=== PATIENT | male | born 1985 | race African-American/Black ===

== ENCOUNTER 2017-02-04 08:05 | Emergency (ER) | payer BC ==
[2017-02-04] MEDS ORDERED: Aspirin Low Dose CHEW TAB* 81 MG PO ONE (08:33)
[2017-02-04] MEDS ORDERED: Ketorolac INJ* 30 MG/ML 1 ML VIAL IV ONE (08:45)
[2017-02-04 08:48] LABS: Hematocrit 41 % (42-52); Hemoglobin 13.5 g/dl (14.0-18.0); Mean Corpuscular HGB Conc 33 g/dl (31-36); Mean Corpuscular Hemoglobin 29 pg (27-31); Mean Corpuscular Volume 87 fL (80-94); Mean Platelet Volume 9 um3 (7.4-10.4); Red Blood Count 4.69 10^6/ul (4.0-5.4); Red Cell Distribution Width 15 % (10.5-15); White Blood Count 5.6 10^3/ul (3.5-10.8)
--- NOTE | 2017-02-04 08:54 | RAD ---
HISTORY: Chest pain COMPARISONS: None VIEWS: 1: frontal portable view of the chest at 8:40 AM FINDINGS: LINES AND TUBES: None. CARDIOMEDIASTINAL SILHOUETTE: The cardiomediastinal silhouette is normal for portable technique. PLEURA: The costophrenic angles are sharp. No pleural abnormalities are noted. LUNG PARENCHYMA: The lungs are clear. ABDOMEN: The upper abdomen is clear. There is no subphrenic gas. BONES AND SOFT TISSUES: No bone or soft tissue abnormalities are noted. IMPRESSION: NO ACTIVE CARDIOPULMONARY DISEASE.
[2017-02-04 09:17] LABS: BUN/Creatinine Ratio 10.7 (8-20); Calcium 8.6 mg/dL (8.6-10.3); EGFR African American 88.5 (>60); EGFR Non-African American 68.8 (>60); Total Bilirubin 0.7 mg/dL (0.2-1.0)
[2017-02-04 10:24] VITALS: BP 125/75
--- NOTE | 2017-02-04 10:35 | ED ---
Juancarlos Barrientos SooYoung, scribed for Jamal Villar MD on 02/04/17 at 0827 . HPI Chest Pain - HPI Summary HPI Summary: A 32 y/o M DENILSON presents to ED with c/o sudden-onset, L-sided CP onset this AM that woke him from sleep. He states having intermittent CP over the past few days but it worsened a lot this AM. Pain described as stabbing/shooting and radiating around to back. Associated sx: diaphoresis. Denies arm pain, pedal edema. Aggravating factors: deep breaths. He took an Ibuprofen to no relief. He had prev episode last year but is unsure what the results, dx were. He has not had a stress test. Smoker. FHx: father has had multiple PA, first one at approx 47; mother has no cardiac risk factors. No daily meds. - History of Current Complaint Chief Complaint: EDChestPainROMI Time Seen by Provider: 02/04/17 08:16 Hx Obtained From: Patient Onset/Duration: Started Hours Ago, Still Present Timing: Constant Initial Severity: Moderate Current Severity: Moderate Chest Pain Location: Left Anterior Chest Pain Radiates: Yes Chest Pain Radiates To:: Back Character: Sharp/Stabbing Aggravating Factor(s): Deep Breaths Alleviating Factor(s): Nothing Associated Signs and Symptoms: Positive: Diaphoresis. 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 Infectious Disease History: Yes Infectious Disease History: Denies: Hx Hepatitis, Hx Human Immunodeficiency Virus (HIV), Traveled Outside the [place] in Last 30 Days - Family History Known Family History: Positive: Cardiac Disease - father - multiple PA, first one at approx 47, Other - mother healthy - Social History Occupation: Employed Full-time Lives: With Family Alcohol Use: Weekly Hx Substance Use: No Substance Use Type: Reports: None Smoking Status (MU): Light Every Day Tobacco Smoker Type: Cigars Review of Systems Positive: Skin Diaphoresis Positive: Chest Pain Negative: Edema, Other - ng: UE pain All Other Systems Reviewed And Are Negative: Yes Physical Exam Triage Information Reviewed: Yes Vital Signs On Initial Exam: Initial Vitals Temp Pulse Resp BP Pulse Ox 98.2 F 54 16 131/88 99 02/04/17 08:05 02/04/17 08:05 02/04/17 08:05 02/04/17 08:05 02/04/17 08:05 Vital Signs Reviewed: Yes Appearance: Positive: Well-Appearing, No Pain Distress Skin: Positive: Warm, Skin Color Reflects Adequate Perfusion, Dry Head/Face: Positive: Normal Head/Face Inspection Eyes: Positive: Normal ENT: Positive: Normal ENT inspection Neck: Positive: Supple, Nontender Respiratory/Lung Sounds: Positive: Clear to Auscultation, Breath Sounds Present Cardiovascular: Positive: RRR Abdomen Description: Positive: Nontender, Soft Bowel Sounds: Positive: Present Musculoskeletal: Positive: Other - Tenderness in L diomedes-sternal Neurological: Positive: Normal Psychiatric: Positive: Affect/Mood Appropriate - [employer] Coma Scale Coma Scale Total: 15 Diagnostics - Vital Signs Vital Signs Temp Pulse Resp BP Pulse Ox 02/04/17 08:05 98.2 F 54 16 131/88 99 - Laboratory Lab Results: Lab Results 02/04/17 02/04/17 02/04/17 Range/Units 08:30 08:30 08:30 WBC 5.6 (3.5-10.8) 10^3/ul RBC 4.69 (4.0-5.4) 10^6/ul Hgb 13.5 L (14.0-18.0) g/dl Hct 41 L (42-52) % MCV 87 (80-94) fL MCH 29 (27-31) pg MCHC 33 (31-36) g/dl RDW 15 (10.5-15) % Plt Count 245 (150-450) 10^3/ul MPV 9 (7.4-10.4) um3 Neut % (Auto) 45.7 (38-83) % Lymph % (Auto) 41.7 (25-47) % Schuyler % (Auto) 11.4 H (1-9) % Eos % (Auto) 0.9 (0-6) % Baso % (Auto) 0.3 (0-2) % Absolute Neuts (auto) 2.6 (1.5-7.7) 10^3/ul Absolute Lymphs (auto) 2.3 (1.0-4.8) 10^3/ul Absolute Monos (auto) 0.6 (0-0.8) 10^3/ul Absolute Eos (auto) 0 (0-0.6) 10^3/ul Absolute Basos (auto) 0 (0-0.2) 10^3/ul Absolute Nucleated RBC 0 10^3/ul Nucleated RBC % 0 D-Dimer, Quantitative < 200 (Less Than 230) ng/mL Sodium 135 (133-145) mmol/L Potassium 4.0 (3.5-5.0) mmol/L Chloride 105 (101-111) mmol/L Carbon Dioxide 25 (22-32) mmol/L Anion Gap 5 (2-11) mmol/L BUN 13 (6-24) mg/dL Creatinine 1.22 H (0.67-1.17) mg/dL Est GFR ( Amer) 88.5 (>60) Est GFR (Non-Af Amer) 68.8 (>60) BUN/Creatinine Ratio 10.7 (8-20) Glucose 98 (70-100) mg/dL Lactic Acid (0.5-2.0) mmol/L Calcium 8.6 (8.6-10.3) mg/dL Total Bilirubin 0.70 (0.2-1.0) mg/dL AST 16 (13-39) U/L ALT 19 (7-52) U/L Alkaline Phosphatase 44 (34-104) U/L Troponin I 0.00 (<0.04) ng/mL Total Protein 7.0 (6.4-8.9) g/dL Albumin 4.0 (3.2-5.2) g/dL Globulin 3.0 (2-4) g/dL Albumin/Globulin Ratio 1.3 (1-3) 02/04/17 Range/Units 08:30 WBC (3.5-10.8) 10^3/ul RBC (4.0-5.4) 10^6/ul Hgb (14.0-18.0) g/dl Hct (42-52) % MCV (80-94) fL MCH (27-31) pg MCHC (31-36) g/dl RDW (10.5-15) % Plt Count (150-450) 10^3/ul MPV (7.4-10.4) um3 Neut % (Auto) (38-83) % Lymph % (Auto) (25-47) % Schuyler % (Auto) (1-9) % Eos % (Auto) (0-6) % Baso % (Auto) (0-2) % Absolute Neuts (auto) (1.5-7.7) 10^3/ul Absolute Lymphs (auto) (1.0-4.8) 10^3/ul Absolute Monos (auto) (0-0.8) 10^3/ul Absolute Eos (auto) (0-0.6) 10^3/ul Absolute Basos (auto) (0-0.2) 10^3/ul Absolute Nucleated RBC 10^3/ul Nucleated RBC % D-Dimer, Quantitative (Less Than 230) ng/mL Sodium (133-145) mmol/L Potassium (3.5-5.0) mmol/L Chloride (101-111) mmol/L Carbon Dioxide (22-32) mmol/L Anion Gap (2-11) mmol/L BUN (6-24) mg/dL Creatinine (0.67-1.17) mg/dL Est GFR ( Amer) (>60) Est GFR (Non-Af Amer) (>60) BUN/Creatinine Ratio (8-20) Glucose (70-100) mg/dL Lactic Acid 1.1 (0.5-2.0) mmol/L Calcium (8.6-10.3) mg/dL Total Bilirubin (0.2-1.0) mg/dL AST (13-39) U/L ALT (7-52) U/L Alkaline Phosphatase (34-104) U/L Troponin I (<0.04) ng/mL Total Protein (6.4-8.9) g/dL Albumin (3.2-5.2) g/dL Globulin (2-4) g/dL Albumin/Globulin Ratio (1-3) Result Diagrams: 02/04/17 08:30 02/04/17 08:30 Lab Statement: Any lab studies that have been ordered have been reviewed, and results considered in the medical decision making process. - Radiology CXR Xray Interpretation: No Acute Changes - IMPRESSION: No active cardiopulmonary dz. ED physician has reviewed this radiology report and agrees. Radiology Interpretation Completed By: Radiologist - EKG 0810 EKG Rhythm: Sinus Bradycardia - 55 bpm EKG Interpretation: with early repolarization Chest Pain Course/Dx - Course Course Of Treatment: Mr. Escobar presented with atypical chest pain. Clinically he has costochondritis and his W/U was negative. His EDACS score is -2. - Diagnoses Provider Diagnoses: Costochondritis Discharge - Discharge Plan Condition: Stable Disposition: HOME Patient Education Materials: Costochondritis (ED) Referrals: No Primary Care Phys,NOPCP [Primary Care Provider] - [facility] [Outside] Additional Instructions: Use Ibuprofen for pain. Establish and follow up with a primary care physician in the next week. Please return to the ED if you experience new or worsening symptoms. The documentation as recorded by the Juancarlos sharma SooYoung accurately reflects the service I personally performed and the decisions made by me, Jamal Villar MD.
== END 2017-02-04 10:24 | disposition home or self-care (01) ==
LOC: ED 08:05
DX: M94.0 Chondrocostal junction syndrome [Tietze] (principal); F17.290 Nicotine dependence, other tobacco product, uncomplicated; Z82.49 Family history of ischemic heart disease and other diseases of the circulatory system; Z88.1 Allergy status to other antibiotic agents
CPT/HCPCS: 36415; 71010; 80053; 83605; 84484; 85025; 85379; 93005; 96374; 99282; A9270-GY; J1885